=== PATIENT | female | born 1980 | race Caucasian/White ===

== ENCOUNTER 2018-11-21 20:03 | Emergency (ER) | payer BC ==
[2018-11-21] MEDS ORDERED: ONDANSETRON HCL IV 4 MG/2 ML VIAL IV ONE (20:34)
[2018-11-21] MEDS ORDERED: 0.9 % SODIUM CHLORIDE 1,000 ML BAG IV ONE ×2 (20:34→21:44)
--- NOTE | 2018-11-21 20:38 | Emergency Department Record ---
History of Present Illness - General Chief complaint: Vomiting Stated complaint: VOMITING AND PG Time Seen by Provider: 11/21/18 20:31 Source: Patient Mode of Arrival: Ambulatory Limitations: No limitations - History of Present Illness Initial comments: pt is 10 wks preg and has not been able to keep anything down for 2 days. she takes occasional zofran she is . she has no bleeding or cramping. she has care established w ob and they told her to come here. MD complaint: Nausea, Vomiting Onset/Timin -: Days(s) Description of Vomiting: Watery Associated Abdominal Pain: No Radiation: None Improves with: None Worsens with: Eating Associated Symptoms: Nausea/vomiting - Related Data Home Medications Medication Instructions Recorded Confirmed Last Taken Acyclovir 400 mg PO DAILY 11/21/18 11/21/18 11/21/18 Loratadine [Claritin] 10 mg PO DAILY 11/21/18 11/21/18 11/19/18 Ondansetron [Zofran Odt] 1 tab PO Q8HR 11/21/18 11/21/18 11/21/18 Prenat 115/Iron Fum/Folic/Dss 1 each PO DAILY 11/21/18 11/21/18 11/19/18 [ 19 Tablet] Allergies Allergy/AdvReac Type Severity Reaction Status Date / Time No Known Drug Allergies Allergy Verified 11/21/18 20:20 Travel Screening - Travel/Exposure Within Last 30 Days Have you traveled within the last 30 days?: No - Travel/Exposure Within Last Year Have you traveled outside the [place] in the last year?: No - Additonal Travel Details Have you been exposed to anyone with a communicable illness?: No - Travel Symptoms Symptom Screening: None Review of Systems Reviewed: No additional complaints except as noted below Constitutional: Reports: As per HPI. Denies: Chills, Fever, Malaise, Night sweats, Weakness, Weight change Eyes: Reports: As per HPI. Denies: Eye discharge, Eye pain, Photophobia, Vision change ENT: Reports: As per HPI. Denies: Congestion, Dental pain, Ear pain, Epistaxis, Hearing loss, Throat pain Respiratory: Reports: As per HPI. Denies: Cough, Dyspnea, Hemoptysis, Stridor, Wheezes Cardiovascular: Reports: As per HPI. Denies: Arrhythmia, Chest pain, Dyspnea on exertion, Edema, Murmurs, Orthopnea, Palpitations, Paroxysmal nocturnal dyspnea, Rheumatic Fever, Syncope Endocrine: Reports: As per HPI. Denies: Fatigue, Heat or cold intolerance, Polydipsia, Polyuria Gastrointestinal: Reports: As per HPI, Nausea, Vomiting. Denies: Abdominal pain, Constipation, Diarrhea, Hematemesis, Hematochezia, Melena Genitourinary: Reports: As per HPI. Denies: Abnormal menses, Discharge, Dyspareunia, Dysuria, Frequency, Hematuria, Incontinence, Retention, Urgency Musculoskeletal: Reports: As per HPI. Denies: Arthralgia, Back pain, Gout, Joint swelling, Myalgia, Neck pain Skin: Reports: As per HPI. Denies: Bruising, Change in color, Change in hair/nails, Lesions, Pruritus, Rash Neurological: Reports: As per HPI. Denies: Abnormal gait, Confusion, Headache, Numbness, Paresthesias, Seizure, Tingling, Tremors, Vertigo, Weakness Psychiatric: Reports: As per HPI. Denies: Anxiety, Auditory hallucinations, Depression, Homicidal thoughts, Suicidal thoughts, Visual hallucinations Hematological/Lymphatic: Reports: As per HPI. Denies: Anemia, Blood Clots, Easy bleeding, Easy bruising, Swollen glands Past Medical History - SOCIAL HISTORY Smoking Status: Never smoker Alcohol Use: None Drug Use: None - RESPIRATORY Hx Respiratory Disorders: No - CARDIOVASCULAR Hx Cardio Disorders: No - NEURO Hx Neuro Disorders: No - GI Hx GI Disorders: No - Hx Genitourinary Disorders: Yes Hx UTI: Yes - ENDOCRINE Hx Endocrine Disorders: No - MUSCULOSKELETAL Hx Musculoskeletal Disorders: No - PSYCH Hx Psych Problems: Yes Hx Anxiety: Yes Hx Depression: Yes Family Medical History Any Significant Family History?: No Physical Exam - General General Appearance: Alert, Oriented x3, Cooperative, Mild distress - Head Head exam: Normal inspection - Eye Eye exam: Normal appearance, PERRL, EOMI Pupils: Normal accommodation - ENT ENT exam: Normal exam, Mucous membranes dry, Normal external ear exam, Normal orophraynx Ear exam: Normal external inspection. negative: External canal tenderness Nasal Exam: Normal inspection. negative: Discharge, Sinus tenderness Mouth exam: Normal external inspection, Tongue normal Teeth exam: Normal inspection. negative: Dental caries Throat exam: Normal inspection. negative: Tonsillar erythema, Tonsillar exudate - Neck Neck exam: Normal inspection, Full ROM. negative: Tenderness - Respiratory Respiratory exam: Normal lung sounds bilaterally. negative: Respiratory distress - Cardiovascular Cardiovascular Exam: Regular rate, Normal rhythm, Normal heart sounds - GI/Abdominal GI/Abdominal exam: Soft, Normal bowel sounds. negative: Tenderness - Rectal Rectal exam: Deferred - exam: Deferred - Extremities Extremities exam: Normal inspection, Full ROM, Normal capillary refill. negative: Tenderness - Back Back exam: Reports: Normal inspection, Full ROM. Denies: Muscle spasm, Rash noted, Tenderness - Neurological Neurological exam: Alert, CN II-XII intact, Normal gait, Oriented X3 - Psychiatric Psychiatric exam: Normal affect, Normal mood - Skin Skin exam: Dry, Intact, Normal color, Warm Course Vital Signs 11/21/18 20:12 Temperature 98.0 F Pulse Rate [ 63 Left] Respiratory 20 Rate Blood Pressure 121/63 [Left Arm] Pulse Ox 99 - Reevaluation(s) Reevaluation #1: 11/21/18 23:32 pt feels much better Medical Decision Making - Lab Data Result diagrams: 11/21/18 21:10 11/21/18 21:10 Disposition Disposition: Discharge Clinical Impression: Hyperemesis gravidarum Disposition: Home, Self-Care Condition: (1) Good Instructions: Hyperemesis Gravidarum (ED) Additional Instructions: follow up with OB. return sooner if worse Forms: Patient Portal Access Quality - Quality Measures Quality Measures: N/A - Blood Pressure Screening Does Patient Have Any of the Following: No Blood Pressure Classification: Pre-Hypertensive BP Reading Systolic Measurement: 123 Diastolic Measurement: 77 Screening for High Blood Pressure: < Pre-Hypertensive BP, F/U Documented > [G8950] Pre-Hypertensive Follow-up Interventions: Follow-up with rescreen every year.
[2018-11-21 21:19] LABS: ABSOLUTE NEUTROPHIL COUNT 6.14; BASO % 0.1 % (0-6); EOS % 0.5 % (0-6); GRAN % 72.8 % (47-80); HEMOGLOBIN 13.7 gm/dl (11.6-16.0); MEAN CELL VOLUME 89.7 fl (81-97); MEAN CORPUSCULAR HGB CONC 33.4 g/dl (32-36); MEAN PLATELET VOLUME 11.4 fl (7.4-10.4); MONO % 5.6 % (0-9); PLATELET COUNT 213 K/uL (130-400); RED BLOOD COUNT 4.57 M/uL (3.80-5.40); RED CELL DISTRIBUTION WIDTH 13.6 % (11.5-14.5); WHITE BLOOD COUNT W/O DIFF 8.4 K/uL (4.2-12.2)
[2018-11-21 21:20] LABS: URINE APPEARANCE CLEAR; URINE BILIRUBIN NEGATIVE (NEGATIVE); URINE BLOOD NEGATIVE (NEGATIVE); URINE COLOR YELLOW; URINE GLUCOSE (UA) NEGATIVE (NEGATIVE); URINE LEUKOCYTE ESTERASE NEGATIVE (NEGATIVE); URINE NITRITE NEGATIVE (NEGATIVE); URINE UROBILINOGEN 0.2 E.U./dL (0.20 - 1.00)
[2018-11-21 21:27] LABS: URINE KETONE 80 mg/dL (NEGATIVE)
[2018-11-21 21:31] LABS: BLOOD UREA NITROGEN 11 mg/dL (6-20); CREATININE 0.4 mg/dL (0.5-0.9); EST GLOMERULAR FILTRATION RATE > 60 mL/min; TOTAL PROTEIN 7.4 g/dL (6.6-8.7)
[2018-11-21 21:32] LABS: LIPASE 67 U/L (13-60)
[2018-11-21 21:33] LABS: GLUCOSE,RANDOM 102 mg/dL (74-109); URINE BACTERIA FEW; URINE RBC 0 - 2 (NONE SEEN); URINE WBC 0 - 2 (0-2/hpf)
[2018-11-21 21:34] LABS: URINE MUCUS LIGHT
[2018-11-21 21:36] LABS: ALB/GLOB RATIO 1.7 (1.1-1.8); ALBUMIN 4.7 g/dL (4.0-5.0); ALKALINE PHOSPHATASE 41 U/L (35-104); ALT/SGPT 9 U/L (<33); AST/SGOT 13 U/L (10.0-35.0)
[2018-11-21] MEDS ORDERED: PROMETHAZINE HCL 6.25 MG in 0.9 % SODIUM CHLORIDE 100ML 100 ML IVPB ONE (22:55)
== END 2018-11-21 23:48 | disposition home or self-care (01) ==
LOC: ER 20:03
DX: O21.0 Mild hyperemesis gravidarum (principal)
CPT/HCPCS: 99285; 96365; 96375; 99284; 83690; 85025; 80053; 81001; J2405; J2550; J7030

== ENCOUNTER 2019-05-04 09:17 | Emergency (ER) | payer BC ==
[2019-05-04] MEDS ORDERED: PROMETHAZINE HCL 12.5 MG in 0.9 % SODIUM CHLORIDE 100ML 100 ML IVPB ONE (09:53)
[2019-05-04] MEDS ORDERED: 0.9 % SODIUM CHLORIDE 1,000 ML BAG IV ONE (09:53)
[2019-05-04] MEDS ORDERED: MAGNESIUM HYDROXIDE/AL HYDROX 30 ML, LIDOCAINE VISC 2% 15ML 15 ML PO ONE ×2 (09:54)
--- NOTE | 2019-05-04 09:58 | Emergency Department Record ---
History of Present Illness - General Chief complaint: complication Stated complaint: VOMITING/34 WEEKS PG Time Seen by Provider: 05/04/19 09:43 Source: Patient Mode of Arrival: Ambulatory Limitations: No limitations Travel/Exposure to [place] Within 21 Days of Symptoms: No - History of Present Illness Initial comments: The patient is here due to a 4 day hx of frequent nausea and vomiting. She has a hx of similar issues and is 34 weeks with her 3rd . She has had some abdominal cramping that has started after the vomiting. There is no fever, diarrhea, vaginal bleeding or back pain. She state she is feeling the baby moving normally. The patient's OB is Dr. Mittal and she will be delivering in [facility]. Complaint: Other Onset/Timin -: Days(s) Severity: Moderate Severity scale (1-10): 5 Quality: Aching, Burning Consistency: Constant Pre-cleve care: Followed by OB - Related Data : 3 Para: 2 Ab: 0 Home Medications Medication Instructions Recorded Confirmed Last Taken Promethazine HCl [Phenergan] 25 mg RC BID PRN 05/04/19 05/04/19 1 Day Ago ~05/03/19 Promethazine HCl [Phenergan] 50 mg PO BID PRN 05/04/19 05/04/19 1 Day Ago ~05/03/19 Allergies Allergy/AdvReac Type Severity Reaction Status Date / Time No Known Drug Allergies Allergy Verified 05/04/19 09:30 Review of Systems Constitutional: Denies: Chills, Fever Eyes: Denies: Eye discharge ENT: Denies: Congestion Respiratory: Denies: Cough, Dyspnea Past Medical History - SOCIAL HISTORY Smoking Status: Never smoker Alcohol Use: None 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: 0 - RESPIRATORY Hx Respiratory Disorders: No - CARDIOVASCULAR Hx Cardio Disorders: No - NEURO Hx Neuro Disorders: No - GI Hx GI Disorders: No - Hx Genitourinary Disorders: Yes Hx UTI: Yes - ENDOCRINE Hx Endocrine Disorders: No - MUSCULOSKELETAL Hx Musculoskeletal Disorders: No - PSYCH Hx Psych Problems: Yes Hx Anxiety: Yes Hx Depression: Yes - HEMATOLOGY/ONCOLOGY Hx Hematology/Oncology Disorders: No Family Medical History Any Significant Family History?: Yes Physical Exam - General General Appearance: Alert, Oriented x3, Cooperative, No acute distress - Head Head exam: Atraumatic, Normocephalic - Eye Eye exam: Normal appearance, PERRL - ENT Throat exam: Normal inspection. negative: Tonsillar erythema, Tonsillar exudate - Neck Neck exam: Normal inspection, Full ROM. negative: Tenderness - Respiratory Respiratory exam: Normal lung sounds bilaterally. negative: Respiratory distress - Cardiovascular Cardiovascular Exam: Regular rate, Normal rhythm, Normal heart sounds - GI/Abdominal GI/Abdominal exam: Soft, Normal bowel sounds. negative: Rebound, Rigid, Tenderness - Extremities Extremities exam: Normal inspection, Full ROM, Normal capillary refill. negative: Tenderness - Neurological Neurological exam: Alert. negative: Motor sensory deficit Course Vital Signs 05/04/19 09:38 Temperature 98.2 F Pulse Rate [ 72 Pulse Ox Probe] Respiratory 18 Rate Blood Pressure 114/70 [Left Arm] Pulse Ox 100 - Reevaluation(s) Reevaluation #1: The patient is still quite nauseated and having epigastric burning. I do feel she will need inpatient treatment due to her level of dehydration and since she is to deliver the baby in [facility] I do believe she will need to be transferred there. I did discuss the case with Dr. Bruce in the ER and he does accept the patient in an ER to ER transfer. I also did discuss the case with Dr. Segura (OB) and she also agrees with the transfer. 05/04/19 10:33 Medical Decision Making - Data Complexity MDM Data: Labs Ordered and/or Reviewed - Lab Data Result diagrams: 05/04/19 09:50 05/04/19 09:50 Disposition Disposition: Transfer Clinical Impression: Hyperemesis arising during Disposition: Acute Care Hospital Transfer Transfer To: [facility] ER Reason For Transfer: OB Accepting Physician: Teo Time Discussed w/Accepting Physician: 10:38 Condition: (2) Stable Instructions: (ED) Forms: Patient Portal Access Time of Disposition: 10:38 Quality - Quality Measures Quality Measures: N/A - Blood Pressure Screening View Details: Yes Does Patient Have Any of the Following: No Blood Pressure Classification: Normal BP Reading Systolic Measurement: 114 Diastolic Measurement: 70 Screening for High Blood Pressure: < Normal BP, F/U Not Required > [G8783]
[2019-05-04 10:11] LABS: BASO % 0.1 % (0-6); HEMATOCRIT 44.5 % (35.0-47.0); LYMPH % 9.5 % (16-45); MEAN CELL VOLUME 89.4 fl (81-97); MEAN CORPUSCULAR HEMOGLOBIN 30.1 pg (27-33); MEAN CORPUSCULAR HGB CONC 33.7 g/dl (32-36); MEAN PLATELET VOLUME 11.8 fl (7.4-10.4); MONO % 4.9 % (0-9); PLATELET COUNT 235 K/uL (130-400); RED BLOOD COUNT 4.98 M/uL (3.80-5.40); RED CELL DISTRIBUTION WIDTH 13.6 % (11.5-14.5); WHITE BLOOD COUNT W/O DIFF 14.9 K/uL (4.2-12.2)
[2019-05-04 10:21] LABS: BLOOD UREA NITROGEN 15 mg/dL (6-20); CREATININE 0.9 mg/dL (0.5-0.9); EST GLOMERULAR FILTRATION RATE > 60 mL/min
[2019-05-04 10:22] LABS: TOTAL PROTEIN 7.9 g/dL (6.6-8.7)
[2019-05-04 10:24] LABS: GLUCOSE,RANDOM 127 mg/dL (74-109)
[2019-05-04 10:26] LABS: ALT/SGPT 12 U/L (<33)
[2019-05-04 10:27] LABS: ALB/GLOB RATIO 1.2 (1.1-1.8); ALBUMIN 4.3 g/dL (4.0-5.0); ALKALINE PHOSPHATASE 165 U/L (35-104); AST/SGOT 17 U/L (10.0-35.0)
--- NOTE | 2019-05-04 12:12 | Emergency Department Record ---
History of Present Illness - General Chief complaint: complication Stated complaint: VOMITING/34 WEEKS PG Time Seen by Provider: 05/04/19 09:43 Source: Patient Mode of Arrival: Ambulatory Limitations: No limitations Travel/Exposure to [facility] [place] Within 21 Days of Symptoms: No - History of Present Illness Onset/Timin -: Days(s) Severity: Moderate Severity scale (1-10): 5 Quality: Aching, Burning Consistency: Constant Pre- care: Followed by OB - Related Data : 3 Para: 2 Ab: 0 Home Medications Medication Instructions Recorded Confirmed Last Taken Promethazine HCl [Phenergan] 25 mg RC BID PRN 05/04/19 05/04/19 1 Day Ago ~05/03/19 Promethazine HCl [Phenergan] 50 mg PO BID PRN 05/04/19 05/04/19 1 Day Ago ~05/03/19 Allergies Allergy/AdvReac Type Severity Reaction Status Date / Time No Known Drug Allergies Allergy Verified 05/04/19 09:30 Review of Systems Constitutional: Denies: Chills, Fever Eyes: Denies: Eye discharge ENT: Denies: Congestion Respiratory: Denies: Cough, Dyspnea Past Medical History - SOCIAL HISTORY Smoking Status: Never smoker Alcohol Use: None 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 - RESPIRATORY Hx Respiratory Disorders: No - CARDIOVASCULAR Hx Cardio Disorders: No - NEURO Hx Neuro Disorders: No - GI Hx GI Disorders: No - Hx Genitourinary Disorders: Yes Hx UTI: Yes - ENDOCRINE Hx Endocrine Disorders: No - MUSCULOSKELETAL Hx Musculoskeletal Disorders: No - PSYCH Hx Psych Problems: Yes Hx Anxiety: Yes Hx Depression: Yes - HEMATOLOGY/ONCOLOGY Hx Hematology/Oncology Disorders: No Family Medical History Any Significant Family History?: Yes Physical Exam - General Limitations: No limitations - GI/Abdominal GI/Abdominal exam: Other (FHT: 144 and strong.) Course Vital Signs 05/04/19 09:38 Temperature 98.2 F Pulse Rate [ 72 Pulse Ox Probe] Respiratory 18 Rate Blood Pressure 114/70 [Left Arm] Pulse Ox 100 Medical Decision Making - Lab Data Result diagrams: 05/04/19 09:50 05/04/19 09:50 Lab Results 05/04/19 05/04/19 Range/Units 09:50 09:50 WBC 14.9 H (4.2-12.2) K/uL RBC 4.98 (3.80-5.40) M/uL Hgb 15.0 (11.6-16.0) gm/dl Hct 44.5 (35.0-47.0) % MCV 89.4 (81-97) fl MCH 30.1 (27-33) pg MCHC 33.7 (32-36) g/dl RDW 13.6 (11.5-14.5) % Plt Count 235 (130-400) K/uL MPV 11.8 H (7.4-10.4) fl Neutrophils % 86.0 H (47-80) % Band Neutrophils % 0.0 (0-5) % Lymphocytes % 9.5 L (16-45) % Monocytes % 4.9 (0-9) % Eosinophils % 0.0 (0-6) % Basophils % 0.1 (0-6) % Absolute Neutrophils 12.80 Lymphocytes 12.0 L (16-45) % Monocytes 2.0 (0-9) % Basophils 0.0 (0-6) % Eosinophil Count 0.0 (0-6) % Sodium 141 (136-145) mmol/L Potassium 3.8 (3.4-4.5) mmol/L Chloride 97 L (98-107) mmol/L Carbon Dioxide 14.0 L (22-29) mmol/L Anion Gap 30.0 H (7-16) BUN 15 (6-20) mg/dL Creatinine 0.9 (0.5-0.9) mg/dL Estimated GFR > 60 mL/min Random Glucose 127 H (74-109) mg/dL Calcium 10.2 H (8.6-10.0) mg/dL Total Bilirubin 1.00 (0.2-1.0) mg/dL AST 17 (10.0-35.0) U/L ALT 12 (<33) U/L Alkaline Phosphatase 165 H (35-104) U/L Total Protein 7.9 (6.6-8.7) g/dL Albumin 4.3 (4.0-5.0) g/dL Globulin 3.6 (1.4-4.8) gm/dL Albumin/Globulin Ratio 1.2 (1.1-1.8) Disposition Clinical Impression: Hyperemesis arising during Disposition: Acute Care Hospital Transfer Condition: (2) Stable Instructions: (ED) Forms: Patient Portal Access Quality - Quality Measures Quality Measures: N/A - Blood Pressure Screening View Details: Yes Does Patient Have Any of the Following: No Blood Pressure Classification: Normal BP Reading Systolic Measurement: 114 Diastolic Measurement: 70 Screening for High Blood Pressure: < Normal BP, F/U Not Required > [G8783]
== END 2019-05-04 10:54 | disposition short-term general hospital (02) ==
LOC: ER 09:17
DX: O21.1 Hyperemesis gravidarum with metabolic disturbance (principal); Z3A.34 34 weeks gestation of pregnancy
CPT/HCPCS: 80053; 85027; 96360; 99284; 99285; J2550; J7030